=== PATIENT | female | born 1975 | race Caucasian/White ===

== ENCOUNTER 2019-06-05 19:19 | Emergency (ER) | payer BC, OTHER ==
[2019-06-05 19:47] VITALS: BP 115/66
--- NOTE | 2019-06-05 19:52 | UC ---
Throat Pain/Nasal Hector HPI - HPI Summary HPI Summary: 43yo female presenting with sore throat x2 days and fatigue today. Also notes "low grade fever of 99-100" for the last couple days. Denies other URI symptoms including cough. Denies sob and wheezing. Denies n/v. Denies appetite changes. Denies taking anything for symptoms relief. States concern for strep but denies known exposure. Denies concern for flu or covid 19. - History of Current Complaint Chief Complaint: UCGeneralIllness Stated Complaint: SORE THROAT Hx Obtained From: Patient Hx Last Menstrual Period: Mirena Pain Intensity: 3 Pain Scale Used: 0-10 Numeric - Allergies/Home Medications Allergies/Adverse Reactions: Allergies Allergy/AdvReac Type Severity Reaction Status Date / Time No Known Allergies Allergy Verified 06/05/19 19:27 Home Medications: Home Medications NK [No Home Medications Reported] 06/05/19 [History Confirmed 06/05/19] PMH/Surg Hx/FS Hx/Imm Hx Previously Healthy: Yes - Surgical History Surgical History: Yes Surgery Procedure, Year, and Place: - Family History Known Family History: Positive: Non-Contributory - Social History Alcohol Use: None Substance Use Type: None Smoking Status (MU): Never Smoked Tobacco When Did the Patient Quit Smoking/Using Tobacco: 15 years ago - Immunization History Most Recent Influenza Vaccination: 2012 Review of Systems All Other Systems Reviewed And Are Negative: Yes Constitutional: Positive: Fever - 99-100, Fatigue ENT: Positive: Sore Throat Respiratory: Positive: Negative Cardiovascular: Positive: Negative Gastrointestinal: Positive: Negative Musculoskeletal: Positive: Negative. Negative: Myalgia Neurological/Mental Status: Positive: Negative. Negative: Headache Physical Exam Triage Information Reviewed: Yes Appearance: Well-Appearing, No Pain Distress, Well-Nourished Vital Signs: Initial Vital Signs Temp 98.9 F 06/05/19 19:23 Pulse 64 06/05/19 19:23 Resp 16 06/05/19 19:23 BP 115/66 06/05/19 19:23 Pulse Ox 100 06/05/19 19:23 Lab Results 06/05/19 Range/Units 19:54 Group A Strep Rapid Negative (Negative) Vital Signs Reviewed: Yes Eyes: Positive: Conjunctiva Clear ENT: Positive: Hearing grossly normal, Pharyngeal erythema, Nasal drainage - PND , Uvula midline. Negative: Nasal congestion, Trismus, Muffled voice, Hoarse voice Neck exam: Normal Neck: Positive: Supple, Nontender, No Lymphadenopathy Respiratory Exam: Normal Respiratory: Positive: Lungs clear, Normal breath sounds, No respiratory distress, No accessory muscle use Cardiovascular Exam: Normal Cardiovascular: Positive: RRR, No Murmur Neurological: Positive: Alert Psychological: Positive: Age Appropriate Behavior Skin Exam: Normal - no erythema or ecchymosis Throat Pain/Nasal Course/Dx - Course Course Of Treatment: Negative rapid strep. Declined flu and covid19 testing. Educated on likely viral pharyngitis and instructed to treat symptomatically. Instructed to return if experiences new or worsening symptoms. Patient voiced understanding and agreed with treatment plan. - Differential Dx/Diagnosis Differential Diagnosis/HQI/PQRI: Influenza, Pharyngitis, Tonsillitis, URI Provider Diagnosis: Viral pharyngitis Discharge ED - Sign-Out/Discharge Documenting (check all that apply): Patient Departure All imaging exams completed and their final reports reviewed: No Studies - Discharge Plan Condition: Stable Disposition: HOME Patient Education Materials: Pharyngitis (ED) Referrals: JOSÉ MIGUEL Bautista [Primary Care Provider] - Additional Instructions: As discussed, you tested negative for strep throat today. Your symptoms are likely caused by a virus and should resolve without treatment. You may take ibuprofen and/or tylenol as directed for fever and pain relief. You may use over the counter throat sprays or lozenges for symptomatic relief. Nasal saline or Flonase may help with post nasal drip. Get plenty of rest and increase fluids. Return if you experience new or worsening symptoms. - Billing Disposition and Condition Condition: STABLE Disposition: Home - Attestation Statements Provider Attestation: Chart has been reviewed. I did not see the patient but was available for consult. EK.
== END 2019-06-05 20:15 | disposition home or self-care (01) ==
LOC: UCCORT 19:19
DX: J02.8 Acute pharyngitis due to other specified organisms (principal); R53.83 Other fatigue; R50.9 Fever, unspecified; Z87.891 Personal history of nicotine dependence
CPT/HCPCS: 87651; 99211; G0463